=== PATIENT | male | born 2000 | race Caucasian/White ===

== ENCOUNTER 2020-10-16 19:34 | Emergency (ER) | payer BC ==
[~2020-10-16] VITALS: Ht 185.4 cm; Wt 72.7 kg
[2020-10-16 19:41] VITALS: BP 137/90
--- NOTE | 2020-10-16 19:51 | NUR ---
Patient sitting on gurney is intoxicated but in no obvious distress, [facility] at bedside
--- NOTE | 2020-10-16 20:05 | NUR ---
Patient up to bathroom w/o problem
== END 2020-10-16 20:37 ==
LOC: ER 19:35
DX: Z04.1 Encounter for examination and observation following transport accident (principal); M54.89 Other dorsalgia; R05 Cough; F12.90 Cannabis use, unspecified, uncomplicated; Z72.89 Other problems related to lifestyle; V87.7XXA Person injured in collision between other specified motor vehicles (traffic), initial encounter; Y93.89 Activity, other specified; Y92.89 Other specified places as the place of occurrence of the external cause; Y99.8 Other external cause status
CPT/HCPCS: 99283